=== PATIENT | female | born 1990 | race Two or more races ===

== ENCOUNTER → 2016-12-20 | Outpatient (CLI) | payer MEDICAID ==
[2016-12-20 12:01] LABS: Basophils # (auto) 0 uL; Basophils % (auto) 0.4 % (0.0-2.0); DEFINITIVE VIEW TRANSMISSION; Eosinophils # (auto) 0.1 uL; Eosinophils % (auto) 1.4 % (0.0-7.0); Hematocrit 33.6 % (36.0-46.0); Hemoglobin 10.5 g/dL (12.2-16.2); Lymphocytes # (auto) 1.5 uL; Lymphocytes % (auto) 15.9 % (10.0-50.0); Mean Corpuscular Hemoglobin 26.8 pg (28.0-32.0); Mean Corpuscular Hgb Conc. 31.4 g/dL (32.0-36.0); Mean Corpuscular Volume 85.2 fL (80.0-100.0); Mean Platelet Volume 8.7 fL (7.4-10.4); Monocytes # (auto) 0.3 uL; Monocytes % (auto) 3.6 % (0.0-12.0); Neutrophils # (auto) 7.5 uL; Neutrophils % (auto) 78.7 % (37.0-80.0); Platelet Count (auto) 297 10^3/uL (140-450); Red Cell Distribution Width 13.8 % (11.6-16.0); White Blood Cell 9.5 10^3/uL (4.4-10.8)
== END | disposition home or self-care (01) ==
LOC: LAB 10:21
PROVIDERS: ATTEND Specialist
DX: Z34.80 Encounter for supervision of other normal pregnancy, unspecified trimester (principal); Z11.3 Encounter for screening for infections with a predominantly sexual mode of transmission; N76.0 Acute vaginitis
CPT/HCPCS: 36415; 80074; 85025; 86703; 87081

== ENCOUNTER 2024-12-26 21:09 | Emergency (ER) | payer MEDICAID ==
[~2024-12-26] VITALS: Ht 165.1 cm; Wt 72.1 kg
--- NOTE | 2024-12-26 21:59 | ED.PDOC ---
GI ASSESSMENT HPI Comments 34 year old female came to ER due to abdominal pain. Patient recently found out last week that she was (, unsure of her LMP). She has been having epigastric abdominal pain for the past 2 days, associated with nausea and diarrhea, and palpitations. Denies any vaginal bleeding. Chief Complaint: Abdominal Pain Time Seen by MD: 21:58 Reviewed Notes: Nurses Notes Allergies: Coded Allergies: No Known Drug Allergy (Verified Allergy, Unknown, 12/26/24) Information Source: Patient Mode of Arrival: Ambulatory Timing: Hours Duration: Since onset Prehospital treatment: None Quality: Aching Vomitus: None Stool: Loose, Watery Severity: Moderate Recent: Other () Recent Hx of: Current Pain Location: Epigastric Modifying Factors: Nothing Associated sign and symptoms: Nausea, Diarrhea, Abdominal Pain Past Medical History PAST MEDICAL HISTORY: Denies Surgical History: Denies all surgeries BILLING CLERK History: Denies all BILLING CLERK Hx 4 Para 3 Constitutional: denies: chills, diaphoresis, fatigue, fever, malaise, sweats, weakness, others EENTM: denies: blurred vision, double vision, ear bleeding, ear discharge, ear drainage, ear pain, ear ringing, eye pain, eye redness, hearing loss, mouth pain, mouth swelling, nasal discharge, nose bleeding, nose congestion, nose pain, photophobia, tearing, throat pain, throat swelling, voice changes, others Respiratory: denies: cough, hemoptysis, orthopnea, SOB at rest, shortness of breath, SOB with excertion, stridor, wheezing, others Cardiovascular: denies: chest pain, dizzy spells, diaphoresis, Dyspnea on exertion, edema, irregular heart beat, left arm pain, lightheadedness, palpita tions, PND, syncope, others Gastrointestinal: reports: abdominal pain, diarrhea, nausea; denies: abdomen distended, blood streaked bowels, constipated, dysphagia, difficulty swallowing, hematemesis, melena, poor appetite, poor fluid intake, rectal bleeding, rectal pain, vomiting, others Genitourinary: denies: abnormal vagina bleeding, burning, dyspareunia, dysuria, flank pain, frequency, hematuria, incontinence, pain, , vagina discharge, urgency, others Neurological: reports: dizziness; denies: fainting, headache, left sided numbness, left sided weakness, numbness, paresthesia, pre-existing deficit, rig ht sided numbness, right sided weakness, seizure, speech problems, tingling, tremors, weakness, others Musculoskeletal: denies: back pain, gout, joint pain, joint swelling, muscle pain, muscle stiffness, neck pain, others Integumetry: denies: bruises, change in color, change in hair/nails, dryness, laceration, lesions, lumps, rash, wounds, others Allergic/Immunocompromised: denies: Difficulty Healing, Frequent Infections, Hives, Itching, others Hematologic/Lymphatic: denies: anemia, blood clots, easy bleeding, easy bruising, swollen glands, others Endocrine: denies: excessive hunger, excessive sweating, excessive thirst, excessive urination, flushing, intolerance to cold, intolerance to heat, unexplained weight gain, unexplained weight loss, others Psychiatric: denies: anxiety, bipolar disorder, depression, hopeless, panic disorder, schizophrenia, sleepless, suicidal, others Physical Exam General Appearance: No Apparent Distress, Normal HEENT: Normal ENT Inspection, Pharynx Normal, TMs Normal Neck: Full Range of Motion, Non-Tender, Normal, Normal Inspection Respiratory: Chest Non-Tender, Lungs Clear, No Accessory Muscle Use, No Respiratory Distress, Normal Breath Sounds Cardiovascular: No Edema, No JVD, No Murmur, No Gallop, Normal Peripheral Pulses, Regular Rate/Rhythm Breast Exam: Deferred Gastrointestinal: No Organomegaly, Non Tender, No Pulsatile Mass, Normal Bowel Sounds, Soft Genitalia: Deferred Pelvic: Deferred Rectal: Deferred Extremities: No calf tenderness, Normal capillary refill, Normal inspection, Normal range of motion, Non-tender, No pedal edema Musculoskeletal : Apperance: Normal Neurologic: Alert, tower equipment installer II-XII nml as Tested, No Motor Deficits, Normal Affect, Normal Mood, No Sensory Deficits Cerebellar Function: Normal Reflexes: Normal Skin: Dry, Normal Color, Warm Lymphatic: No Adenopathy Was a procedure done? Was a procedure done?: No GI differential Dx Differential Diagnosis: Cholecystitis, Constipation, Diverticular disease, Gastritis/PUD, Gastroenteritis, Pancreatitis, UTI, Urolithiasis, X-Ray, Labs, Meds, VS Vital Signs Date Time Temp Pulse Resp B/P (MAP) Pulse Ox O2 Delivery O2 Flow Rate FiO2 12/26/24 21:55 98.6 74 16 125/71 (89) 100 Lab Test 12/26/24 22:00 12/26/24 21:58 Range/Units Urine Color Light-yellow Yellow Urine Clarity Clear Clear Urine pH 5.5 5.0-9.0 Urine Specific [place] 1.016 1.001-1.035 Urine Protein Negative Negative Urine Ketones Negative Negative Urine Blood Negative Negative /uL Urine Nitrite Negative Negative Urine Bilirubin Negative Negative Urine Urobilinogen Normal Negative mg/dL Urine Leukocyte Esterase Negative Negative /uL Urine RBC 1 0 - 4 /hpf Urine Microscopic WBC 1 0-5 /HPF Urine Squamous Epithelial Cells Few <5 /hpf Urine Bacteria None seen None Seen /hpf Urine Glucose Normal Normal mg/dL White Blood Count 9.1 4.4-10.8 10^3/uL Red Blood Count 4.84 4.0-5.20 10^6/uL Hemoglobin 13.8 12.2-16.2 g/dL Hematocrit 41.8 36.0-46.0 % Mean Corpuscular Volume 86.4 80.0-100.0 fL Mean Corpuscular Hemoglobin 28.5 28.0-32.0 pg Mean Corpuscular Hemoglobin Concent 32.9 32.0-36.0 g/dL Red Cell Distribution Width 13.8 11.8-14.3 % Platelet Count 343 140-450 10^3/uL Mean Platelet Volume 8.6 6.9-10.8 fL Neutrophils (%) (Auto) 63.0 37.0-80.0 % Lymphocytes (%) (Auto) 27.0 10.0-50.0 % Monocytes (%) (Auto) 6.3 0.0-12.0 % Eosinophils (%) (Auto) 2.8 0.0-7.0 % Basophils (%) (Auto) 0.9 0.0-2.0 % Neutrophils # (Auto) 5.7 1.6-8.6 10 ^3/uL Lymphocytes # (Auto) 2.5 0.4-5.4 10 ^3/uL Monocytes # (Auto) 0.6 0-1.3 10 ^3/uL Eosinophils # (Auto) 0.3 0-0.8 10 ^3/uL Basophils # (Auto) 0.1 0-0.2 10 ^3/uL Nucleated Red Blood Cells 0.1 % Sodium Level 137 136-145 mmol/L Potassium Level 3.4 L 3.5-5.1 mmol/L Chloride Level 103 98-107 mmol/L Carbon Dioxide Level 25 20-31 mmol/L Anion Gap 9 5-15 Blood Urea Nitrogen 12 9-23 mg/dL Creatinine 0.94 0.550-1.02 mg/dL Glomerular Filtration Rate Calc 82 >90 mL/min BUN/Creatinine Ratio 12.8 10.0-20.0 Serum Glucose 85 74-106 mg/dL Calcium Level 10.6 H 8.7-10.4 mg/dL Beta HCG, Quantitative 6049.4 H 1.5-4.2 mIU/mL Time of 1ST Reevaluation: 21:52 Reevaluation 1ST: Unchanged Patient Education/Counseling: Diagnosis, Treatment Family Education/Counseling: No Family Present Departure 1 Departure Time of Disposition: 00:14 (Patient likely has a acid reflux from . Patient's beta hCG 6000 ultrasound shows what may be the beginning of a intrauterine you outpatient follow up with an OB within 2 weeks.) Impression: Primary Impression: Early stage of Additional Impression: Abdominal pain Qualified Codes: R10.84 - Generalized abdominal pain Disposition: 01 HOME / SELF CARE / HOMELESS Condition: Stable Additional Instructions: You likely have acid reflux and . You can take [id number] omeprazole. Your beta hCG level today was approximately 6000 Your ultrasound showed the beginning of the but no definite intrauterine at this time. It is important to follow up with your OBGYN within 2 weeks to repeat your labs and ultrasound. Discharged With: Self Critical Care Note Critical Care Time?: No Stability Stability form required: No Heart Score Heart Score: Heart Score Response (Comments) Value History N/A 0 EKG N/A 0 Age N/A 0 Risk Factors N/A 0 Troponin N/A 0 Total 0 I personally scribed for MATIAS VENTURA MD ([email or web address]) on 12/26/24 at 21:59. Electronically submitted by Gus Schaeffer ([email or web address]). MATIAS VENTURA MD Dec 26, 2024 21:59
[2024-12-26 22:29] LABS: Basophils # (auto) 0.1 10 ^3/uL (0-0.2); Basophils % (auto) 0.9 % (0.0-2.0); Eosinophils # (auto) 0.3 10 ^3/uL (0-0.8); Eosinophils % (auto) 2.8 % (0.0-7.0); Hematocrit 41.8 % (36.0-46.0); Hemoglobin 13.8 g/dL (12.2-16.2); Lymphocytes # (auto) 2.5 10 ^3/uL (0.4-5.4); Mean Corpuscular Hemoglobin 28.5 pg (28.0-32.0); Mean Corpuscular Hgb Conc. 32.9 g/dL (32.0-36.0); Mean Corpuscular Volume 86.4 fL (80.0-100.0); Monocytes # (auto) 0.6 10 ^3/uL (0-1.3); Monocytes % (auto) 6.3 % (0.0-12.0); Neutrophils # (auto) 5.7 10 ^3/uL (1.6-8.6); Nucleated Red Blood Cells % 0.1 %; Platelet Count (auto) 343 10^3/uL (140-450); Red Blood Cells 4.84 10^6/uL (4.0-5.20); Red Cell Distribution Width 13.8 % (11.8-14.3); White Blood Cell 9.1 10^3/uL (4.4-10.8)
[2024-12-26 22:33] LABS: Chloride 103 mmol/L (98-107); Sodium 137 mmol/L (136-145)
[2024-12-26 22:34] LABS: Anion Gap 9 (5-15); Carbon Dioxide 25 mmol/L (20-31)
[2024-12-26 22:35] LABS: Urine Bacteria None Seen /hpf (None Seen)
[2024-12-26 22:39] LABS: BUN/Creatinine Ratio 12.8 (10.0-20.0); Blood Urea Nitrogen 12 mg/dL (9-23); Glucose 85 mg/dL (74-106)
[2024-12-26 22:40] LABS: Calcium 10.6 mg/dL (8.7-10.4); Potassium 3.4 mmol/L (3.5-5.1)
[2024-12-26 22:42] LABS: Urine Blood Negative /uL (Negative); Urine Clarity Clear (Clear); Urine Color Light-Yellow (Yellow); Urine Protein, UAD Negative (Negative); Urine Specific Gravity 1.016 (1.001-1.035); Urine Squamous Epithelial Cell FEW /hpf (<5); Urine Urobilinogen Normal (Negative); Urine WBC 1 /HPF (0-5); Urine pH 5.5 (5.0-9.0)
--- NOTE | 2024-12-27 00:13 | DVH ---
OB ULTRASOUND <14 WEEKS: HISTORY: abdominal pain and vaginal bleeding TECHNIQUE: Multiple real-time grayscale sonographic images of the pelvis with duplex Doppler color f low, spectral and M-mode analysis. TRANSDUCERS: Transabdominal Findings/ IMPRESSION: Uterus measures 8.1 x 6.2 x 5.1 cm. Endometrium measures 1.6 cm. No free fluid in the pelvic cul-de- sac . Possible cystic lesion within the endometrium which may represent an early gestational sac. No pole or yolk sac. Correlation with beta HCG recommended. Consider follow-up ultrasound in 2 wee ks. Right ovary measures 2.2 x 1.8 x 1.7 cm. Left ovary measures 2.9 x 1.2 x 2.0 cm color doppler flow i s visualized bilaterally.
[2024-12-27 01:35] VITALS: BP 122/66; PULSE 78; RESP 18; TEMP 98.2; O2SAT 100
== END 2024-12-27 01:37 | disposition home or self-care (01) ==
LOC: ER 21:09
DX: O26.891 Other specified pregnancy related conditions, first trimester (principal); R10.2 Pelvic and perineal pain; R10.13 Epigastric pain; R19.7 Diarrhea, unspecified; R11.0 Nausea; Z3A.00 Weeks of gestation of pregnancy not specified
CPT/HCPCS: 36415; 76801; 80048; 81001; 84702; 85025

== ENCOUNTER 2025-06-22 10:23 | Observation (INO) | payer MEDICAID ==
[2025-06-22] MEDS ORDERED: PREN-96 PO (11:58)
--- NOTE | 2025-06-22 14:18 | DVHDS2 ---
Physician Discharge Progress N Final Diagnosis: Encounter for surveillance Operations or Procedures: Operations or Procedures NST Condition on Discharge: Stable Disposition: Home Discharge Instructions: Diet: Regular Activity: No Restrictions, As Tolerated Follow Up/Referral: As scheduled Medications: NA Follow Up Care: Discharge Statement: "Patient was advised to return to the ER or call 911 if any headaches, dizziness, shortness of breath, chest pain, abdominal pain, bleeding, fevers, or worsening of medical condition. Patient was counseled about treatment plan, medications, possible side effects, patientverbalized understanding. All questions were answered to the best of my ability. This discharge took greater then 30 minutes in planning, reviewing documentation, counseling the patient, and discussing with other team members." Visit Coding OBGYN Date of Service: Jun 22, 2025 Billing Provider: HARPREET MOCK DO POT ROOM SUPERVISOR Common Visit Codes: 17104-JJN/OBS SAME DATE (MOD) POT ROOM SUPERVISOR Procedure Codes: 16995-38- NON-STRESS TEST HARPREET MOCK DO Jun 22, 2025 14:18
== END 2025-06-22 12:13 | disposition home or self-care (01) ==
LOC: LDRP 10:23
PROVIDERS: ATTEND Obstetrics & Gynecology
DX: Z36.89 Encounter for other specified antenatal screening (principal); Z3A.30 30 weeks gestation of pregnancy; Z98.890 Other specified postprocedural states; Z79.899 Other long term (current) drug therapy
CPT/HCPCS: 59025; 81002; 94760; G0378

== ENCOUNTER 2025-06-25 08:42 | Observation (INO) | payer MEDICAID ==
[~2025-06-25 08:42] MED LIST: PREN-96 PO
--- NOTE | 2025-06-25 14:33 | DVHDS2 ---
Physician Discharge Progress N Final Diagnosis: anti m ab 30wks Operations or Procedures: Operations or Procedures nst reactive reviwed,sono Condition on Discharge: Good Disposition: Home Discharge Instructions: Diet: Regular Activity: No Restrictions, As Tolerated Medications: na Follow Up Care: Specialist: 1w Discharge Statement: "Patient was advised to return to the ER or call 911 if any headaches, dizziness, shortness of breath, chest pain, abdominal pain, bleeding, fevers, or worsening of medical condition. Patient was counseled about treatment plan, medications, possible side effects, patientverbalized understanding. All questions were answered to the best of my ability. This discharge took greater then 30 minutes in planning, reviewing docu mentation, counseling the patient, and discussing with other team members." Visit Coding OBGYN Date of Service: Jun 25, 2025 Billing Provider: BLANKA MORALES DO FACTORY MANAGER Common Visit Codes: 99157-[id number] OBS CARE (HIGH) FACTORY MANAGER Procedure Codes: 57162-54- NON-STRESS TEST BLANKA MORALES DO Jun 25, 2025 14:33
== END 2025-06-25 14:30 | disposition home or self-care (01) ==
LOC: UNDOADMOB 13:45 → LDRP 13:45
PROVIDERS: ADMIT Obstetrics & Gynecology; ATTEND Obstetrics & Gynecology
DX: O36.1930 Maternal care for other isoimmunization, third trimester, not applicable or unspecified (principal); Z3A.30 30 weeks gestation of pregnancy; Z79.899 Other long term (current) drug therapy; Z98.890 Other specified postprocedural states
CPT/HCPCS: 59025; 81002; 94760; G0378

== ENCOUNTER 2025-07-02 16:10 | Observation (INO) | payer MEDICAID | END 2025-07-02 16:52 | disposition home or self-care (01) | LOC: UNDOADMOB 16:10 → LDRP 16:10 → UNDODISOB 16:52 | PROVIDERS: ADMIT Obstetrics & Gynecology; ATTEND Obstetrics & Gynecology | DX: Z36.89 Encounter for other specified antenatal screening (principal); Z3A.31 31 weeks gestation of pregnancy; Z98.890 Other specified postprocedural states; Z79.899 Other long term (current) drug therapy | CPT/HCPCS: 59025; 81002; G0378 ==

== ENCOUNTER 2025-07-08 06:34 | Observation (INO) | payer MEDICAID ==
--- NOTE | 2025-07-09 17:09 | DVH ---
BIOPHYSICAL PROFILE HISTORY: Anti-M antibody Comparison Study: US OB ULTRASOUND COMP LESS 14WKS on DOS: 12/26/24 TECHNIQUE: Multiple real-time grayscale sonographic images through the gravid uterus of the fetus wi th duplex Doppler color flow and M-mode spectral analysis FINDINGS: BIOPHYSICAL PROFILE: breathing score: 2 movement score: 2 tone score: 2 Quantitative ALE score: 2 (ALE: 13.7 Cm.) Total score: 8 The cervix is not visualized Single live fetus in cephalic presentation. heart rate 161 beats per minute. Possible nuchal cord. IMPRESSION: Biophysical profile score: 8/8 Possible nuchal cord.
--- NOTE | 2025-07-09 17:44 | DVHDS2 ---
Physician Discharge Progress N Final Diagnosis: testing for Anti-M antibody Operations or Procedures: Operations or Procedures 35yo IUP@32.4wks VSS NST reactive FKC/PTL precautions reviewed Dr. Kendrick consulted, agrees with POC. Other Interventions Other Interventions [address] [address] Ph: [phone] DIAGNOSTIC IMAGING Diagnostic Imaging Report : [id number] Signed PATIENT: YULISA FAULKNERCCT: [id number] UNIT: [id number] : 1990 LOC: [facility] ROOM / BED: TRIAGE2 / A AGE / SEX: 35 / F ADM STATUS: ADM IN SERVICE 1609 ORDERING PHYSICIAN: NORM CARLOS CNM PROCEDURE(s): BPP - BIOPHYSICAL PROFILE REASON: Anti-M antibody ORDER NUMBER(s): [id number], ACCESSION NUMBER(s): [id number] BIOPHYSICAL PROFILE HISTORY: Anti-M antibody Comparison Study: US OB ULTRASOUND COMP LESS 14WKS on DOS: 12/26/24 TECHNIQUE: Multiple real-time grayscale sonographic images through the gravid uterus of the fetus with duplex Doppler color flow and M-mode spectral analysis FINDINGS: BIOPHYSICAL PROFILE: breathing score: 2 movement score: 2 tone score: 2 Quantitative ALE score: 2 (ALE: 13.7 Cm.) Total score: 8 The cervix is not visualized Single live fetus in cephalic presentation. heart rate 161 beats per minute. Possible nuchal cord. IMPRESSION: Biophysical profile score: 8/8 Possible nuchal cord. ATED BY: BEAU CHRISTIAN MD DICTATED DATE/TIME: 07/09/251705 SIGNED BY: BEAU CHRISTIAN MD SIGNED DATE/TIME: 07/09/251705 CC: Condition on Discharge: Stable Disposition: Home Discharge Instructions: Diet: Regular Activity: Light activity Medications: see med list Follow Up Care: Specialist: f/u in 1 wk Discharge Statement: "Patient was advised to return to the ER or call 911 if any headaches, dizziness, shortness of breath, chest pain, abdominal pain, bleeding, fevers, or worsening of medical condition. Patient was counseled about treatment plan, medications, possible side effects, patientverbalized understanding. All questions were answered to the best of my ability. This discharge took greater then 30 minutes in planning, reviewing documentation, counseling the patient, and discussing with other team members." Visit Coding OBGYN Date of Service: Jul 09, 2025 Billing Provider: NORM CARLOS CNM CARTRIDGE BELT PUNCHER Common Visit Codes: 85634-[id number] OBS CARE (HIGH) CARTRIDGE BELT PUNCHER Procedure Codes: 37766-42- NON-STRESS TEST NORM CARLOS CNM Jul 09, 2025 17:44
== END 2025-07-09 17:30 | disposition home or self-care (01) ==
LOC: UNDOADMOB 07-09 16:06 → LDRP 07-09 16:06 → UNDODISOB 07-09 17:30
PROVIDERS: ADMIT Obstetrics & Gynecology; ATTEND Obstetrics & Gynecology
DX: O36.1930 Maternal care for other isoimmunization, third trimester, not applicable or unspecified (principal); Z3A.32 32 weeks gestation of pregnancy; Z98.890 Other specified postprocedural states
CPT/HCPCS: 59025; 76819; 81002; 94760; G0378

== ENCOUNTER 2025-07-16 06:41 | Observation (INO) | payer MEDICAID ==
--- NOTE | 2025-07-16 16:44 | DVH ---
OB ULTRASOUND, LIMITED CLINICAL INDICATION: anti m antibody TECHNIQUE: Multiple grayscale ultrasound and M-mode images were obtained of the pelvis for evaluation of intrauterine . COMPARISON: US BIOPHYSICAL PROFILE on DOS: 07/09/25, US OB ULTRASOUND COMP LESS 14WKS on DOS: 12/26/24 FINDINGS: A single living fetus is seen in cephalic presentation. Physical profile: 06/13 movements: 2 breathin tone: 2 Amniotic fluid volume: 2 Placenta: Anterior. Amniotic fluid: Visibly normal. ALE 14.1 cm heart rate: 124 beats/min. A complete anatomic survey was not performed on this exam. IMPRESSION: 1. Biophysical profile: 06/13
--- NOTE | 2025-07-16 16:58 | DVHDS2 ---
Physician Discharge Progress N Final Diagnosis: ANTI M AB 33 WKS Operations or Procedures: Operations or Procedures NST REACTIVE REVIWED,SONO Condition on Discharge: Good Disposition: Home Discharge Instructions: Diet: Regular Activity: Light activity Medications: NA Follow Up Care: Specialist: 1W Discharge Statement: "Patient was advised to return to the ER or call 911 if any headaches, dizziness, shortness of breath, chest pain, abdominal pain, bleeding, fevers, or worsening of medical condition. Patient was counseled about treatment plan, medications, possible side effects, patientverbalized understanding. All questions were answered to the best of my ability. This discharge took greater then 30 minutes in planning, reviewing documentation, counseling the patient, and discussing with other team members." Visit Coding OBGYN Date of Service: Jul 16, 2025 Billing Provider: BLANKA MORALES DO RADIO MECHANIC APPRENTICE Common Visit Codes: [id number] OBS CARE (HIGH) RADIO MECHANIC APPRENTICE Procedure Codes: 42225-70- NON-STRESS TEST BLANKA MORALES DO Jul 16, 2025 16:58
== END 2025-07-16 17:02 | disposition home or self-care (01) ==
LOC: UNDOADMOB 15:53 → LDRP 15:53
PROVIDERS: ADMIT Obstetrics & Gynecology; ATTEND Obstetrics & Gynecology
DX: Z36.84 Encounter for antenatal screening for fetal lung maturity (principal); Z3A.33 33 weeks gestation of pregnancy
CPT/HCPCS: 59025; 76819; 81002; G0378

== ENCOUNTER 2025-07-23 12:14 | Observation (INO) | payer MEDICAID ==
--- NOTE | 2025-07-23 13:24 | DVH ---
BIOPHYSICAL PROFILE HISTORY: Anti-M Antibodies Comparison Study: US BIOPHYSICAL PROFILE on DOS: 07/16/25, US BIOPHYSICAL PROFILE on DOS: 07/09/25, US O B ULTRASOUND COMP LESS 14WKS on DOS: 12/26/24 TECHNIQUE: Multiple real-time grayscale sonographic images through the gravid uterus of the fetus wi th duplex Doppler color flow and M-mode spectral analysis FINDINGS: BIOPHYSICAL PROFILE: breathing score: 2 movement score: 2 tone score: 2 Quantitative ALE score: 2 (ALE: 12.9 Cm.) Total score: 8 The cervix is closed and measures 3.5 cm. Single live fetus in cephalic presentation. heart rate 126 beats per minute. Anterior placenta without previa or abruption IMPRESSION: Biophysical profile score: 8
--- NOTE | 2025-07-25 16:33 | DVHDS2 ---
Physician Discharge Progress N Final Diagnosis: anti m 34 wks Operations or Procedures: Operations or Procedures nst reactive reviwed,sono Condition on Discharge: Good Disposition: Home Discharge Instructions: Diet: Regular Activity: No Restrictions, As Tolerated Follow Up/Referral: Follow up with Dr. Kendrick at next appointment as scheduled, please return to [facility] for any concerns/complaints Medications: na Follow Up Care: Specialist: 1w Discharge Statement: "Patient was advised to return to the ER or call 911 if any headaches, dizziness, shortness of breath, chest pain, abdominal pain, bleeding, fevers, or worsening of medical condition. Patient was counseled about treatment plan, medications, possible side effects, patientverbalized understanding. All questions were answered to the best of my ability. This discharge took greater then 30 minutes in planning, reviewing documentation, counseling the patient, and discussing with other team members." Visit Coding OBGYN Date of Service: Jul 23, 2025 Billing Provider: BLANKA KENDRICK DO UNIVERSAL BANKER Common Visit Codes: 92969-[id number] OBS CARE (HIGH) UNIVERSAL BANKER Procedure Codes: 26410-59- NON-STRESS TEST BLANKA KENDRICK DO Jul 25, 2025 16:33
== END 2025-07-23 14:43 | disposition home or self-care (01) ==
LOC: LDRP 12:14
PROVIDERS: ADMIT Obstetrics & Gynecology; ATTEND Obstetrics & Gynecology
DX: O36.1930 Maternal care for other isoimmunization, third trimester, not applicable or unspecified (principal); Z3A.34 34 weeks gestation of pregnancy; Z98.890 Other specified postprocedural states
CPT/HCPCS: 59025; 76819; 81002; 96360; G0378

== ENCOUNTER 2025-07-28 07:27 | Observation (INO) | payer MEDICAID ==
--- NOTE | 2025-07-28 12:58 | DVH ---
BIOPHYSICAL PROFILE HISTORY: Anti- M- Antibody TECHNIQUE: Multiple transabdominal real-time grayscale sonographic images through the gravid uterus of the fetus with duplex Doppler color flow and M-mode spectral analysis FINDINGS: BIOPHYSICAL PROFILE: breathing score: 2 movement score: 2 tone score: 2 Quantitative ALE score: 2 (ALE: 13.6 Cm.) Total score: 8 The cervix not well visualized. Single live fetus in cephalic presentation. heart rate 147 beats per minute. Anterior placenta without previa or abruption IMPRESSION: Biophysical profile score: 8
--- NOTE | 2025-07-28 17:02 | DVHDS2 ---
Discharge Summary Date of Admission Jul 28, 2025 at 11:50 Date of Discharge: Jul 28, 2025 Admitting Diagnosis 35+ weeks anti M antibody Wounds: None Brief Hx & Hospital Course: Patient here for monitoring 35+ weeks anti M antibody NST BPP performed reassuring Consults/Reason for consult None Operations or Procedures None Condition at Discharge: Good Final Diagnosis/Problems List 35+ weeks anti M antibody reassuring heart tones Discharge Disposition: Home Discharge Instruct/Medications Diet: Regular Activity: Light activity (Kick counts labor precautions) Follow Up/Referral: As scheduled close routine monitoring Medications: Resume home meds Scheduled Vit W/ Ferrous Fumara ( One Daily), 1 TAB PO DAILY, (Reported) Discharge Statement: "Patient was advised to return to the ER or call 911 if any headaches, dizziness, shortness of breath, chest pain, abdominal pain, bleeding, fevers, or worsening of medical condition. Patient was counseled about treatment plan, medications, possible side effects, patientverbalized understanding. All questions were answered to the best of my ability. This discharge took greater then 30 minutes in planning, reviewing documentation, counseling the patient, and discussing with other team members." DME: Diagnosis: Follow up perinatology and continuous routine monitoring ASSESSMENT ASSESSMENT Assessment Visit Coding OBGYN Date of Service: Jul 28, 2025 Billing Provider: BIENVENIDO OHARA DO YARD INSPECTOR Common Visit Codes: 80867-KER/OBS SAME DATE (LOW), 85289-IYE/OBS SAME DATE (MOD), 61344-CEJ/OBS SAME DATE (HIGH) YARD INSPECTOR Procedure Codes: 76145-56- NON-STRESS TEST BIENVENIDO OHARA DO Jul 28, 2025 17:02
== END 2025-07-28 13:00 | disposition home or self-care (01) ==
LOC: UNDOADMOB 11:45 → LDRP 11:45 → UNDODISOB 13:00
PROVIDERS: ADMIT Obstetrics & Gynecology; ATTEND Obstetrics & Gynecology
DX: O36.1930 Maternal care for other isoimmunization, third trimester, not applicable or unspecified (principal); Z3A.35 35 weeks gestation of pregnancy; Z98.890 Other specified postprocedural states; Z79.899 Other long term (current) drug therapy
CPT/HCPCS: 59025; 76819; 81002; 94760; G0378

== ENCOUNTER 2025-08-08 01:30 | Observation (INO) | payer MEDICAID ==
--- NOTE | 2025-08-08 12:45 | DVH ---
BIOPHYSICAL PROFILE HISTORY: Anti M Antibody TECHNIQUE: Multiple transabdominal real-time grayscale sonographic images through the gravid uterus of the fetus with duplex Doppler color flow and M-mode spectral analysis FINDINGS: BIOPHYSICAL PROFILE: breathing score: 2 movement score: 2 tone score: 2 Quantitative ALE score: 2 (ALE: 12.8 Cm.) Total score: 8/8 The cervix obscured by head Single live fetus in cephalic presentation. heart rate 155 beats per minute. Anterior Grade 2 placenta without previa or abruption Single live fetus at 36 weeks 6 days Biophysical profile score 8/8 corresponding to an EDWIGE of 08/30/2025 IMPRESSION: 1. Biophysical profile score: 8/8 HS:Y
--- NOTE | 2025-08-08 13:37 | DVHDS2 ---
Physician Discharge Progress N Final Diagnosis: anti m ab 36wks Operations or Procedures: Operations or Procedures nst,sono nst reactive reviwed,sono Condition on Discharge: Good Disposition: Home Discharge Instructions: Diet: Regular Activity: No Restrictions, As Tolerated Medications: na Follow Up Care: Specialist: 1w Discharge Statement: "Patient was advised to return to the ER or call 911 if any headaches, dizziness, shortness of breath, chest pain, abdominal pain, bleeding, fevers, or worsening of medical condition. Patient was counseled about treatment plan, medications, possible side effects, patientverbalized understanding. All questions were answered to the best of my ability. This discharge took greater then 30 minutes in planning, reviewing documentation, counseling the patient, and discussing with other team members." Visit Coding OBGYN Date of Service: Aug 08, 2025 Billing Provider: BLANKA MORALES DO HEALTH ASSISTANT Common Visit Codes: [id number] OBS CARE (HIGH) HEALTH ASSISTANT Procedure Codes: 94468-71- NON-STRESS TEST BLANKA MORALES DO Aug 08, 2025 13:37
[2025-08-08 13:41] LABS: Hematocrit 33.3 % (36.0-46.0); Hemoglobin 10.9 g/dL (12.2-16.2); Mean Corpuscular Hemoglobin 27.3 pg (28.0-32.0); Mean Corpuscular Volume 83.3 fL (80.0-100.0); Nucleated Red Blood Cells % 0.0 %
== END 2025-08-08 13:40 | disposition home or self-care (01) ==
LOC: UNDOADMOB 11:22 → LDRP 11:22
PROVIDERS: ADMIT Obstetrics & Gynecology; ATTEND Obstetrics & Gynecology
DX: O36.1930 Maternal care for other isoimmunization, third trimester, not applicable or unspecified (principal); Z3A.36 36 weeks gestation of pregnancy; Z98.890 Other specified postprocedural states
CPT/HCPCS: 36415; 59025; 76819; 81002; 85025; 86780; 87081; 94760; G0378

== ENCOUNTER 2025-08-15 07:34 | Observation (INO) | payer MEDICAID ==
--- NOTE | 2025-08-15 16:39 | DVH ---
OB ULTRASOUND, LIMITED CLINICAL INDICATION: anti m antibody TECHNIQUE: Multiple grayscale ultrasound and M-mode images were obtained of the pelvis for evaluation of intrauterine . COMPARISON: US BIOPHYSICAL PROFILE on DOS: 08/08/25, US BIOPHYSICAL PROFILE on DOS: 07/28/25, US BIOPHY SICAL PROFILE on DOS: 07/23/25 FINDINGS: A single living fetus is seen in cephalic presentation. Biophysical profile: 06/13 breathin movements: 2 tone: 2 Amniotic fluid: 2 Placenta: Anterior. Amniotic fluid: Visibly normal. ALE 13.1 cm heart rate: 145 beats/min. A complete anatomic survey was not performed on this exam. IMPRESSION: 1. Biophysical profile: 06/13
[2025-08-15] MEDS ORDERED: IOHEXOL 300 MG/ML 100ML BOTTLE IJ ONE (18:16)
--- NOTE | 2025-08-15 21:06 | DVHDS2 ---
Physician Discharge Progress N Final Diagnosis: Anti M Secondary Diagnosis: Encounter for NON stress test Operations or Procedures: Operations or Procedures NST/BPP ALE Commentary: Commentary PATIENT: ADDISON FAULKNERT: [id number] UNIT: [id number] : 1990 LOC: [facility] ROOM / BED: TRIAGE1 / A AGE / SEX: 35 / F ADM STATUS: ADM IN SERVICE 1559 ORDERING PHYSICIAN: HARPREET MOCK DO PROCEDURE(s): BPP - BIOPHYSICAL PROFILE REASON: anti m antibody ORDER NUMBER(s): [id number], ACCESSION NUMBER(s): [id number] OB ULTRASOUND, LIMITED CLINICAL INDICATION: anti m antibody TECHNIQUE: Multiple grayscale ultrasound and M-mode images were obtained of the pelvis for evaluation of intrauterine . COMPARISON: US BIOPHYSICAL PROFILE on DOS: 08/08/25, US BIOPHYSICAL PROFILE on DOS: 07/28/25, US BIOPHYSICAL PROFILE on DOS: 07/23/25 FINDINGS: A single living fetus is seen in cephalic presentation. Biophysical profile: 06/13 breathin movements: 2 tone: 2 Amniotic fluid: 2 Placenta: Anterior. Amniotic fluid: Visibly normal. ALE 13.1 cm heart rate: 145 beats/min. A complete anatomic survey was not performed on this exam. IMPRESSION: 1. Biophysical profile: 06/13 ATED BY: MITCHELL VALENTINE MD DICTATED DATE/TIME: 08/15/25 0517 Condition on Discharge: Stable Disposition: Home Discharge Instructions: Diet: Regular Activity: No Restrictions, As Tolerated Medications: NA Follow Up Care: Discharge Statement: "Patient was advised to return to the ER or call 911 if any headaches, dizziness, shortness of breath, chest pain, abdominal pain, bleeding, fevers, or worsening of medical condition. Patient was counseled about treatment plan, medications, possible side effects, patientverbalized understanding. All questions were answered to the best of my ability. This discharge took greater then 30 minutes in planning, reviewing docume ntation, counseling the patient, and discussing with other team members." Visit Coding OBGYN Date of Service: Aug 15, 2025 Billing Provider: HARPREET MOCK DO GAS OPERATOR Common Visit Codes: 09727-MNY/OBS SAME DATE (MOD) GAS OPERATOR Procedure Codes: 63778-46- NON-STRESS TEST HARPREET MOCK DO Aug 15, 2025 21:06
== END 2025-08-15 17:01 | disposition home or self-care (01) ==
LOC: UNDOADMOB 15:55 → LDRP 15:55
PROVIDERS: ADMIT Obstetrics & Gynecology; ATTEND Obstetrics & Gynecology
DX: O36.1930 Maternal care for other isoimmunization, third trimester, not applicable or unspecified (principal); Z3A.37 37 weeks gestation of pregnancy; Z98.890 Other specified postprocedural states; Z79.899 Other long term (current) drug therapy
CPT/HCPCS: 59025; 76819; 81002; 94760; G0378; Q9967

== ENCOUNTER 2025-08-19 21:26 | Observation (INO) | payer MEDICAID ==
[~2025-08-19] VITALS: Ht 165.1 cm; Wt 74.8 kg
[2025-08-19 22:09] LABS: Hematocrit 32.6 % (36.0-46.0); Hemoglobin 10.9 g/dL (12.2-16.2); Mean Corpuscular Hemoglobin 27.6 pg (28.0-32.0); Mean Corpuscular Volume 82.2 fL (80.0-100.0); Nucleated Red Blood Cells % 0.0 %
[2025-08-19 22:12] LABS: Urine Amorphous Crystal FEW /hpf (None Seen); Urine Protein, UAD Negative (Negative)
[2025-08-19 22:20] LABS: INR 0.89 (0.9-1.15); Partial Thromboplastin Time 26.5 SEC (24.5-34.5); Protein, Urine < 6.0 mg/dL (1-14); Prothrombin Time 9.5 sec (9.3-11.8)
[2025-08-19 22:22] LABS: Alanine Aminotransferase 26 U/L (7-40); Albumin 3.9 g/dL (3.2-4.8); Anion Gap 9 (5-15); BUN/Creatinine Ratio 13.9 (10.0-20.0); Blood Urea Nitrogen 10 mg/dL (9-23); Carbon Dioxide 22 mmol/L (20-31); Chloride 106 mmol/L (98-107); Glucose 82 mg/dL (74-106); Potassium 3.9 mmol/L (3.5-5.1); Sodium 137 mmol/L (136-145); Total Protein 7.2 g/dL (5.7-8.2); Uric Acid 4.2 mg/dL (3.1-7.8)
[2025-08-19 22:23] LABS: Bilirubin, Total 0.5 mg/dL (0.2-1.0)
[2025-08-19 22:41] LABS: Alkaline Phosphatase 170 U/L (46-116); Calcium 8.7 mg/dL (8.7-10.4)
--- NOTE | 2025-08-19 22:50 | DVHDS2 ---
Physician Discharge Progress N Final Diagnosis: Anti-M antibody well being established ruled out preeclampsia Operations or Procedures: Operations or Procedures S: 35yo IUP@38.3wks presents to OB triage with c/o vaginal spotting (brought in used toilet paper with trace blood on it), uterine cramps, CARTER, and RUQ pain. Denies LOF/vision changes. +FM. PNC with Dr. Kendrick, complicated by anti-M antibody O: VSS NST reactive TOCO: irregular UCs SVE by RN: 12/31/-2, intact Tylenol 1000mg PO ordered for CARTER urine P/C ratio is incalculable Laboratory Tests Test 08/19/25 21:50 Range/Units White Blood Count 9.9 4.4-10.8 10^3/uL Red Blood Count 3.96 L 4.0-5.20 10^6/uL Hemoglobin 10.9 L 12.2-16.2 g/dL Hematocrit 32.6 L 36.0-46.0 % Mean Corpuscular Volume 82.2 80.0-100.0 fL Mean Corpuscular Hemoglobin 27.6 L 28.0-32.0 pg Mean Corpuscular Hemoglobin Concent 33.6 32.0-36.0 g/dL Red Cell Distribution Width 15.6 H 11.8-14.3 % Platelet Count 256 140-450 10^3/uL Mean Platelet Volume 8.6 6.9-10.8 fL Neutrophils (%) (Auto) 71.2 37.0-80.0 % Lymphocytes (%) (Auto) 20.3 10.0-50.0 % Monocytes (%) (Auto) 6.2 0.0-12.0 % Eosinophils (%) (Auto) 1.8 0.0-7.0 % Basophils (%) (Auto) 0.5 0.0-2.0 % Neutrophils # (Auto) 7.0 1.6-8.6 10 ^3/uL Lymphocytes # (Auto) 2.0 0.4-5.4 10 ^3/uL Monocytes # (Auto) 0.6 0-1.3 10 ^3/uL Eosinophils # (Auto) 0.2 0-0.8 10 ^3/uL Basophils # (Auto) 0.1 0-0.2 10 ^3/uL Nucleated Red Blood Cells 0.0 % Prothrombin Time 9.5 9.3-11.8 sec Prothrombin Time INR 0.89 L 0.9-1.15 Activated Partial Thromboplast Time 26.5 24.5-34.5 SEC D-Dimer, Quantitative 2.10 H 0.0-0.49 mg/L FEU Urine Color Colorless Yellow Urine Clarity Clear Clear Urine pH 5.5 5.0-9.0 Urine Specific Lawrence 1.005 1.001-1.035 Urine Protein Negative Negative Urine Ketones Negative Negative Urine Blood Negative Negative /uL Urine Nitrite Negative Negative Urine Bilirubin Negative Negative Urine Urobilinogen Normal Negative mg/dL Urine Leukocyte Esterase 2+ Negative /uL Urine RBC 2 0 - 4 /hpf Urine Microscopic WBC 9 H 0-5 /HPF Urine Squamous Epithelial Cells Few <5 /hpf Urine Amorphous Crystals Few None Seen /hpf Urine Bacteria Few H None Seen /hpf Urine Creatinine 43.11 30.0-125.0 mg/dL -U-r-i-n-e- -G-y-r-t-e-i-n-/-H-z-j-g-a-g-n-i-n-e- -R-a-t-i-o- -0-.-1-4- Urine Glucose Normal Normal mg/dL Urine Total Protein < 6.0 1-14 mg/dL Sodium Level 137 136-145 mmol/L Potassium Level 3.9 3.5-5.1 mmol/L Chloride Level 106 98-107 mmol/L Carbon Dioxide Level 22 20-31 mmol/L Anion Gap 9 5-15 Blood Urea Nitrogen 10 9-23 mg/dL Creatinine 0.72 0.550-1.02 mg/dL Glomerular Filtration Rate Calc 112 >90 mL/min BUN/Creatinine Ratio 13.9 10.0-20.0 Serum Glucose 82 74-106 mg/dL Uric Acid 4.2 3.1-7.8 mg/dL Calcium Level 8.7 8.7-10.4 mg/dL Total Bilirubin 0.5 0.2-1.0 mg/dL Aspartate Amino Transferase (AST) 24 13-40 U/L Alanine Aminotransferase (ALT) 26 7-40 U/L Alkaline Phosphatase 170 H 46-116 U/L Total Protein 7.2 5.7-8.2 g/dL Albumin 3.9 3.2-4.8 g/dL A: 35yo IUP@38.3wks Anti-M antibody well being established ruled out preeclampsia P: D/C home FKC/PreE/labor precautions reviewed f/u in 3 days, will do 24 hour urine collection then Dr. Kendrick consulted, agrees with POC. Other Interventions Other Interventions [place] [address] Ph: [phone] DIAGNOSTIC IMAGING Diagnostic Imaging Report : [id number] Signed PATIENT: YULISA FAULKNERCCT: [id number] UNIT: [id number] : 1990 LOC: [facility] ROOM / BED: TRIAGE1 / A AGE / SEX: 35 / F ADM STATUS: ADM IN SERVICE 36 ORDERING PHYSICIAN: NORM CARLOS CNM PROCEDURE(s): BPP - BIOPHYSICAL PROFILE REASON: Vaginal bleeding and Anti-M antibody ORDER NUMBER(s): [id number], ACCESSION NUMBER(s): [id number] BIOPHYSICAL PROFILE HISTORY: Vaginal bleeding and Anti-M antibody Comparison Study: US BIOPHYSICAL PROFILE on DOS: 08/15/25, US BIOPHYSICAL PROFILE on DOS: 08/08/25, US BIOPHYSICAL PROFILE on DOS: 07/28/25, US BIOPHYSICAL PROFILE on DOS: 07/23/25, US BIOPHYSICAL PROFILE on DOS: 07/16/25 TECHNIQUE: Multiple real-time grayscale sonographic images through the gravid uterus of the fetus with duplex Doppler color flow and M-mode spectral analysis FINDINGS: BIOPHYSICAL PROFILE: breathing score: 2 movement score: 2 tone score: 2 Quantitative ALE score: 2 (ALE: 12.5 Cm.) Total score: 8 The cervix close Single live fetus in vertexpresentation. heart rate 151 beats per minute. Anterior placenta without previa or abruption IMPRESSION: Biophysical profile score: 8/ ATED BY: KYREE ARRIOLA MD DICTATED DATE/TIME: 08/19/252310 SIGNED BY: KYREE ARRIOLA MD SIGNED DATE/TIME: 08/19/252310 CC: Condition on Discharge: Stable Disposition: Home Discharge Instructions: Diet: Regular Activity: No Restrictions, As Tolerated Medications: see med list Follow Up Care: Specialist: f/u in 3 days Discharge Statement: "Patient was advised to return to the ER or call 911 if any headaches, dizziness, shortness of breath, chest pain, abdominal pain, bleeding, fevers, or worsening of medical condition. Patient was counseled about treatment plan, medications, possible side effects, patientverbalized understanding. All questions were answered to the best of my ability. This discharge took greater then 30 minutes in planning, reviewing documentation, counseling the patient, and discussing with other team members." Visit Coding OBGYN Date of Service: Aug 20, 2025 Billing Provider: NORM CARLOS CNM ELECTRIC TRACK SWITCH MAINTAINER Common Visit Codes: 35802-TNWQCGS OBS CARE (HIGH) ELECTRIC TRACK SWITCH MAINTAINER Procedure Codes: 20683-39- NON-STRESS TEST NORM CARLOS CNM Aug 19, 2025 22:50
--- NOTE | 2025-08-19 23:13 | DVH ---
BIOPHYSICAL PROFILE HISTORY: Vaginal bleeding and Anti-M antibody Comparison Study: US BIOPHYSICAL PROFILE on DOS: 08/15/25, US BIOPHYSICAL PROFILE on DOS: 08/08/25, US BIOPHYSICAL PROFILE on DOS: 07/28/25, US BIOPHYSICAL PROFILE on DOS: 07/23/25, US BIOPHYSICAL PROFILE on DOS: 07/16/25 TECHNIQUE: Multiple real-time grayscale sonographic images through the gravid uterus of the fetus wi th duplex Doppler color flow and M-mode spectral analysis FINDINGS: BIOPHYSICAL PROFILE: breathing score: 2 movement score: 2 tone score: 2 Quantitative ALE score: 2 (ALE: 12.5 Cm.) Total score: 8 The cervix close Single live fetus in vertexpresentation. heart rate 151 beats per minute. Anterior placenta without previa or abruption IMPRESSION: Biophysical profile score: 8/
== END 2025-08-19 23:57 | disposition home or self-care (01) ==
LOC: LDRP 21:26
PROVIDERS: ADMIT Obstetrics & Gynecology; ATTEND Obstetrics & Gynecology
DX: O36.1930 Maternal care for other isoimmunization, third trimester, not applicable or unspecified (principal); O26.853 Spotting complicating pregnancy, third trimester; Z3A.38 38 weeks gestation of pregnancy; Z98.890 Other specified postprocedural states
CPT/HCPCS: 36415; 59025; 76819; 80053; 81001; 81002; 82570; 84156; 84550; 85025; 85379; 85610; 85730; 86850; 86900; 86901; 94760; G0378

== ENCOUNTER 2025-08-22 11:12 | Observation (INO) | payer MEDICAID ==
--- NOTE | 2025-08-25 17:18 | DVH ---
BIOPHYSICAL PROFILE HISTORY: Anti M antibody TECHNIQUE: Multiple transabdominal real-time grayscale sonographic images through the gravid uterus of the fetus with duplex Doppler color flow and M-mode spectral analysis FINDINGS: BIOPHYSICAL PROFILE: breathing score: 2 movement score: 2 tone score: 2 Quantitative ALE score: 2 (ALE: 11.7 Cm.) Total score: 8/8 The cervix obscured by head Single live fetus in cephalic presentation. heart rate 121 beats per minute. Anterior Grade 3 placenta without previa or abruption Single live fetus at 39 weeks 2 days Biophysical profile score 8/8 corresponding to an EDWIGE of 08/30/2025 IMPRESSION: 1. Biophysical profile score: 8/8 2. FHR: 121 bpm
--- NOTE | 2025-08-26 06:19 | DVHDS2 ---
Discharge Summary Date of Admission Aug 25, 2025 at 15:21 Date of Discharge: Aug 25, 2025 Admitting Diagnosis Patient 39+ weeks with anti M antibody followed by perinatology here for NST if BP all reassuring and performed Wounds: None Labs/Diagnostic Data: None Brief Hx & Hospital Course: Patient's NST BPP reassuring and performed Consults/Reason for consult Anti M antibody pre 9+ weeks Operations or Procedures None Condition at Discharge: Good Final Diagnosis/Problems List Anti M antibody 39-2/7 weeks Discharge Disposition: Home Discharge Instruct/Medications Diet: Regular Activity: No Restrictions, As Tolerated Follow Up/Referral: As scheduled routine/peritoneum scheduled visit Scheduled Vit W/ Ferrous Fumara ( One Daily), 1 TAB PO DAILY, (Reported) Discharge Statement: "Patient was advised to return to the ER or call 911 if any headaches, dizziness, shortness of breath, chest pain, abdominal pain, bleeding, fevers, or worsening of medical condition. Patient was counseled about treatment plan, medications, possible side effects, patientverbalized understanding. All questions were answered to the best of my ability. This discharge took greater then 30 minutes in planning, reviewing documentation, counseling the patient, and discussing with other team members." ASSESSMENT ASSESSMENT Assessment Visit Coding OBGYN Date of Service: Aug 26, 2025 Billing Provider: BIENVENIDO OHARA DO FIELD LOGISTICS COORDINATOR Common Visit Codes: 74127-[id number] INP/OBS CARE(HIGH), 13554-QLD/OBS SAME DATE (LOW), 97522-ZJV/OBS SAME DATE (MOD) FIELD LOGISTICS COORDINATOR Procedure Codes: 15616-57- NON-STRESS TEST BIENVENIDO OHARA DO Aug 26, 2025 06:19
--- NOTE | 2025-08-26 07:39 | ECG ---
[facility] Test Date: 2025-08-25 Test Time: 16:22:34 Pat Name: JAVIER FAULKNER Department: Room: [facility] A Gender: F Ash Handler: Venkat MORAES : 1990 Requested By: BIENVENIDO OHARA Order Number: [id number] Reading MD: Measurements Intervals Loraine Rate: 86 P: 12 LA: 120 QRS: 27 QRSD: 80 T: 22 QT: 344 QTc: 411 Interpretive Statements Normal sinus rhythm Please click the below link to view image of tracing.
== END 2025-08-25 17:34 | disposition home or self-care (01) ==
LOC: LDRP 08-25 15:21 → UNDOADMOB 08-25 15:21 → LDRP 08-25 15:30 → UNDODISOB 08-25 17:34
PROVIDERS: ADMIT Obstetrics & Gynecology; ATTEND Obstetrics & Gynecology
DX: O36.1930 Maternal care for other isoimmunization, third trimester, not applicable or unspecified (principal); Z3A.39 39 weeks gestation of pregnancy; Z98.890 Other specified postprocedural states; Z79.899 Other long term (current) drug therapy
CPT/HCPCS: 59025; 76819; 81002; 93005; 94760; G0378

== ENCOUNTER 2025-08-27 04:56 | Observation (INO) | payer MEDICAID ==
--- NOTE | 2025-08-28 13:13 | DVH ---
OB ULTRASOUND, LIMITED CLINICAL INDICATION: Anti- M antibody TECHNIQUE: Multiple grayscale ultrasound and M-mode images were obtained of the pelvis for evaluation of intrauterine . COMPARISON: US BIOPHYSICAL PROFILE on DOS: 08/25/25 FINDINGS: A single living fetus is seen in cephalic presentation. Biophysical profile: 06/13 breathin movement: 2 tone: 2 Amniotic fluid volume: 2 Placenta: Anterior. Amniotic fluid: Visibly normal. ALE 10.3 cm heart rate: 127 beats/min. A complete anatomic survey was not performed on this exam. IMPRESSION: 1. Biophysical profile: 06/13
--- NOTE | 2025-08-29 08:25 | DVHDS2 ---
Physician Discharge Progress N Final Diagnosis: Poss. PI 39wks Operations or Procedures: Operations or Procedures nst reactive reviwed,sono Condition on Discharge: Good Disposition: Home Discharge Instructions: Diet: Regular Activity: No Restrictions, As Tolerated Follow Up/Referral: NST/BPP Q2days Medications: na Follow Up Care: Primary Care Provider: refuses induction fu 1 day Discharge Statement: "Patient was advised to return to the ER or call 911 if any headaches, dizzin ess, shortness of breath, chest pain, abdominal pain, bleeding, fevers, or worsening of medical condition. Patient was counseled about treatment plan, medications, possible side effects, patientverbalized understanding. All questions were answered to the best of my ability. This discharge took greater then 30 minutes in planning, reviewing documentation, counseling the patient, and discussing with other team members." Visit Coding OBGYN Date of Service: Aug 28, 2025 Billing Provider: BLANKA MORALES DO WET CLEANER MACHINE Common Visit Codes: 17668-[id number] INP/OBS CARE (HIGH) WET CLEANER MACHINE Procedure Codes: 89643-86- NON-STRESS TEST BLANKA MORALES DO Aug 29, 2025 08:25
== END 2025-08-28 13:54 | disposition home or self-care (01) ==
LOC: LDRP 08-28 12:07
PROVIDERS: ADMIT Obstetrics & Gynecology; ATTEND Obstetrics & Gynecology
DX: O13.3 Gestational [pregnancy-induced] hypertension without significant proteinuria, third trimester (principal); Z3A.39 39 weeks gestation of pregnancy; Z98.890 Other specified postprocedural states
CPT/HCPCS: 59025; 76819; 81002; G0378

== ENCOUNTER 2025-08-28 19:36 | Inpatient (IN) | payer MEDICAID ==
[~2025-08-28] VITALS: Ht 165.1 cm; Wt 77.1 kg
[2025-08-28] MEDS: NALOXONE HCL 0.4 MG/ML VIAL IV ONE (20:00)
[2025-08-28] MEDS: LACTATED RINGER'S 500 ML IV ONE (20:00)
[2025-08-28] MEDS ORDERED: NALBUPHINE HCL 10 MG/1ml INJECTION IV PRN (20:00)
[2025-08-28 20:19] LABS: Hematocrit 34.7 % (36.0-46.0); Hemoglobin 11.4 g/dL (12.2-16.2); Mean Corpuscular Hemoglobin 27.1 pg (28.0-32.0); Mean Corpuscular Volume 82.1 fL (80.0-100.0); Nucleated Red Blood Cells % 0.1 %
[2025-08-28] MEDS: DERMOPLAST 60ML BOTTLE TOP PRN (20:32)
[2025-08-28] MEDS: PHISODERM TOP SOLN 240ML BTL TOP PRN (20:32)
[2025-08-28 20:33] LABS: Alanine Aminotransferase 18 U/L (7-40); Albumin 3.9 g/dL (3.2-4.8); Anion Gap 12 (5-15); BUN/Creatinine Ratio 8.4 (10.0-20.0); Bilirubin, Total 0.5 mg/dL (0.2-1.0); Calcium 8.9 mg/dL (8.7-10.4); Chloride 105 mmol/L (98-107); Glucose 105 mg/dL (74-106); Sodium 137 mmol/L (136-145); Total Protein 7.3 g/dL (5.7-8.2)
[2025-08-28] MEDS: WITCH HAZEL-GLYCERIN PAD TOP PRN (20:33)
[2025-08-28] MEDS: LACTATED RINGER'S 1,000 ML IV SCH (20:33)
[2025-08-28 20:35] LABS: INR 0.89 (0.9-1.15); Partial Thromboplastin Time 28.4 SEC (24.5-34.5); Prothrombin Time 9.5 sec (9.3-11.8)
[2025-08-28] MEDS: PENICILLIN G POT 5MIL/D5 50ML 50 ML IV ONE (20:35)
--- NOTE | 2025-08-28 20:35 | DVHHP2 ---
OB CC & HPI Date Date of Admission: Aug 28, 2025 Patient Identification: : 4 Para: 3 EDC: Aug 30, 2025 EGA: 39w5d Chief Complaints: Reason for admission: active labor History of Present Complaints Cyndie Thompson is a with IUP at 39w5d presenting for rule out labor Patient states her contractions got stronger and closer together at 6pm. Denies leaking fluid, denies vaginal bleeding, and endorses positive movement. Denies headache, blurry vision, or RUQ pain. PNC: Routine care with Dr Kendrick, adequate visits, complicated by PIH. GTT WNL, d ating based on LMP and early US, GBS taken and unknown OB Hx: x3 Past Medical History Cardiac: No pertinent Hx Pulmonary: No pertinent Hx Central Nervous System: No pertinent Hx GI: No pertinent Hx Hemotology/Oncology: No pertinent Hx Hepatobiliary: No pertinent Hx Psychiatric: No pertinent Hx Musculoskeletal: No pertinent Hx Rheumotologic: No pertinent Hx Infectious Disease: No peritnent Hx ENT: No pertinent Hx Renal/: No pertinent Hx Endocrine: No pertinent Hx Dermatology: No pertinent Hx Past Surgical History: No pertinent Hx OB History OB History Care: Good Care Ultrasounds: Normal mid trimester US Obstetrical Complications: Gestational Hypertension Medical Complications: None Allergies: Coded Allergies: No Known Drug Allergy (Verified Allergy, Unknown, 12/26/24) Home Meds Reported Medications Vit W/ Ferrous Fumara ( One Daily) Daily Tab, 1 TAB PO DAILY, #90 TAB 3 Refills 06/22/25 Current Medications Current Medications Medications (Trade) Dose Ordered Sig/Joey Route PRN Reason Start Time Stop Time Status Last Admin Lactated Ringer's 1,000 ml @ 125 mls/hr Q8H IV 08/28/25 20:00 Nalbuphine HCl (Nubain) 10 mg Q4HP PRN IV MODERATE PAIN (4-6 PAIN SCALE) 08/28/25 20:00 Penicillin G Potassium 2716825 units/Dextrose 50 ml @ 100 mls/hr Q4H IV 08/29/25 00:00 Mahogany Bonilla (Tucks) 1 pad PRN PRN TOP PERINEAL AREA DISCOMFORT 08/28/25 20:00 Sodium Lauryl Sulfate (Phisoderm) 240 ml PRN PRN TOP PERINEAL AREA DISCOMFORT 08/28/25 20:00 Benzocaine (Dermoplast) 1 applic PRN PRN TOP PERINEAL AREA DISCOMFORT 08/28/25 20:00 Lidocaine HCl (Xylocaine) 40 ml ONCE PRN IJ PERINEAL AREA DISCOMFORT 08/28/25 20:00 Family & Social History Family/Social History Past Family/Social History: Fm Hx: denies relevant history Social Hx: -Denies tobacco, alcohol, or other drug use -Denies hx of abuse, feels safe at home -Denies hx of STIs Blood Type: O+ Rubella: immune RPR/VDRL: Negative GBS Status: Unknown HBsAG: Negative Review of Systems Constitutional: No symptom reported Ears, Nose, & Throat: No symptom reported Eyes: No symptom reported Pulmonary/Respiratory: No symptom reported Cardiovascular: No symptom reported Gastrointestinal: No symptom reported Genitourinary: No symptom reported Musculoskeletal: No symptom reported Skin: No symptom reported Psychiatric: No symptom reported Endocrine: No symptom reported Hemotologic/Lymphatic: No symptom reported OB Admission Exam Physical Exam Vitals: VSS HEENT: Nasal Mucosa Normal, Eyes non-injected, Oropharynx Normal, PERRLA, Moist Membranes Heart: Rhythm Normal Lungs: Clear Abdomen: Gravid (EFW 3280 g by Definicare) Extremities: Normal Reflexes: Normal Cervical Dilatation: 7cm Membranes: Intact Heart Rate: 150's Accelerations: Accelerations Present Decelerations: No Decelerations Short Term Variability: Present Auditing Specialist Variability: Average (6-25) Contractions on Admission: < 5 Minutes Apart Date/Time Contractions Began: 08/28/25 @ 1800 Intensity: Moderate OB Plan Plan Admitting Diagnosis: Onset of Labor Plan: Expectant Management Other Plan: ASSESSMENT: -35 yo , IUP at 39w5d -Active labor -Category 1 Tracing -GBS negative PLAN: -Plan of care and plan discussed with Patient -Process, Risks, benefits, of available management options discussed, including starting with expectant management, augmentation if indicated, Internal monitoring of UCs & FHT, AROM, amnioinfusion etc only when indicated -Patient agrees to starting with expectant management at this time, as she desires as natural a as possible; other interventions as indicated. Informed Consent obtained -Consent for possible blood transfusion obtained. -All questions and concerns answered. -Admit to Place for Labor -Routine L&D Admission orders -EFM per policy. OK to be intermittent per protocol, if FHR tracing is reactive and category 1 -Encourage ambulation and/exercises / frequent position change to facilitate labor & descent -Supportive care as needed. Patient requesting an epidural CONY. Patient OK to receive epidural -Re-assess cervix in 3-4 hours, or sooner as indicated to evaluate need for augmentation -Anticipate normal spontaneous vaginal delivery Visit Coding OBGYN Date of Service: Aug 28, 2025 Billing Provider: DOM BARNES CNM TRAVELING CONSTRUCTION SUPERINTENDENT Common Visit Codes: 04552-MODFVXG OBS CARE (HIGH) TRAVELING CONSTRUCTION SUPERINTENDENT Procedure Codes: 80410-39- NON-STRESS TEST DOM BARNES CNM Aug 28, 2025 20:35
[2025-08-28 20:42] LABS: Alkaline Phosphatase 185 U/L (46-116); Blood Urea Nitrogen 7 mg/dL (9-23); Carbon Dioxide 20 mmol/L (20-31); Potassium 3.3 mmol/L (3.5-5.1)
[2025-08-28] MEDS: ROPIVACAINE HCL 100 ML ONE (21:38)
[2025-08-28 22:29] LABS: Urine Protein, UAD Negative (Negative)
[2025-08-28 22:38] LABS: Protein, Urine 30.3 mg/dL (1-14)
[2025-08-28 22:41] LABS: Benzodiazephine Screen, Urine Neg (NEGATIVE); Cannabinoid Screen, Urine Neg (NEGATIVE)
[2025-08-28 22:42] LABS: Amphetamine Screen, Urine Neg (NEGATIVE); Barbiturate Scree,Urine Neg (NEGATIVE); Cocaine Screen, Urine Neg (NEGATIVE); Opiate Scree,Urine Neg (NEGATIVE); Phencyclidine Screen, Urine Neg (NEGATIVE)
[2025-08-29] MEDS ORDERED: PENICILLIN G POTASSIUM 2,500,000 UNITS in D5W 5% 50 ML IV SCH
[2025-08-29] MEDS: LACT. RINGERS/OXYTOCIN 20UNITS 500 ML IV ONE ×2 (00:47→01:23)
--- NOTE | 2025-08-29 06:19 | LDN2 ---
Labor and Delivery Note Date 08/29/25 Age 35 4 Para 3->4 EDC 08/30/25 EGA 39w6d Vaginal Delivery: VTX Vacuum Assisted: No Placenta: Spontaneous Sex: Female Weight 3080g Apgars 9/9 Nuchal Cord Transected: No Amniotic Fluid: Clear Anesthesia epidural Episiotomy: No Extension: No Labs Laboratory Tests 12/20/16 10:35: Hepatitis B Surface Antigen Negative 09/20/16 09:56: Blood Bank 08/28/25 20:00: Blood Type O POSITIVE Comments/Significant Med Anh At 0039 this 35yo now delivered a viable Female infant by w/ APGARS 07/15. ISI. Infant immediately placed skin to skin on pts chest. Cord clamped and cut by FOB after pulsation ceased. Cord blood sent. Intact 3- vessel cord and intact placenta (Ralph), delivered spontaneously Pitocin IV bolus started. Placenta sent to pathology. Patient had epidural and pain was well managed Cervix inspected and intact. Perineum intact. Rectal mucosa and sphincter intact. Fundus at U, firm, midline, and light lochia. QBL 50ml. VSS. Count correct x2. Patient to care and baby to couplet care, both stable. Visit Coding OBGYN Date of Service: Aug 29, 2025 Billing Provider: DOM BARNES CNM SOFTWARE QUALITY ASSURANCE ENGINEER Common Visit Codes: 47670-[id number] INP/OBS CARE(HIGH) SOFTWARE QUALITY ASSURANCE ENGINEER Procedure Codes: 91641-COL DELIVERY ONLY DOM BARNES CNM Aug 29, 2025 06:18
[2025-08-29] MEDS: LIDOCAINE 2%HCL (LOCAL ANESTH.) INJ 20ML MDV IJ PRN (06:38)
[2025-08-29] MEDS ORDERED: ACETAMINOPHEN 325 MG TAB PO PRN (06:45)
[2025-08-29 07:30] VITALS: BP 95/54; PULSE 81; RESP 16; TEMP 98.2; O2SAT 97
[2025-08-29] MEDS: POTASSIUM CHL 20 Meq TABLET PO ONE (07:58)
[2025-08-29 11:30] VITALS: BP 108/71; PULSE 60; RESP 16; TEMP 97.9; O2SAT 99
[2025-08-29] MEDS: IBUPROFEN 600 MG TAB PO PRN (12:29)
[2025-08-29 15:14] VITALS: BP 96/46; PULSE 83; RESP 16; TEMP 98.5; O2SAT 97
[2025-08-29 19:00] VITALS: BP 102/56; PULSE 79; RESP 15; TEMP 98.1; O2SAT 98
[2025-08-29] MEDS ORDERED: DOCUSATE SOD 100 MG CAP PO SCH (22:00)
[2025-08-29 23:00] VITALS: BP 99/58; PULSE 80; RESP 17; TEMP 98.2; O2SAT 98
--- NOTE | 2025-08-30 02:14 | DVHPN2 ---
Progress Note Date Seen: Aug 30, 2025 Subjective Cyndie is resting in bed. Baby swaddled and crying in FOB arms. SUBJECTIVE -Lochia minimal -Tolerating regular diet well. -Pain relieved with oral medication PRN -Ambulating and voiding well w/o feeling lightheaded or dizzy. -Passing flatus and had BM x1 -Breast feeding -Desires and requests to be discharged home today (08/30) vital signs Vital Sign Date Time Temp Pulse Resp B/P (MAP) Pulse Ox O2 Delivery O2 Flow Rate FiO2 08/29/25 23:00 98.2 80 17 99/58 (72) 98 98.2 08/29/25 19:00 Room Air Total Intake and Output 08/29/25 08/29/25 08/30/25 15:00 23:00 07:00 Output Total 1300 ml Balance -1300 ml medications Current Medications Medications Dose Ordered Sig/Joey Route Start Time Stop Time Status Last Admin Dose Admin Nalbuphine HCl 10 mg Q4HP PRN IV 08/28/25 20:00 Cancel Penicillin G Potassium 1940421 units/Dextrose 50 ml @ 100 mls/hr Q4H IV 08/29/25 00:00 Cancel Witch Irene 1 pad PRN PRN TOP 08/28/25 20:00 08/28/25 20:33 1 PAD Sodium Lauryl Sulfate 240 ml PRN PRN TOP 08/28/25 20:00 08/28/25 20:32 240 ML Benzocaine 1 applic PRN PRN TOP 08/28/25 20:00 08/28/25 20:32 1 APPLIC Ibuprofen 600 mg Q6HP PRN PO 08/29/25 06:45 08/29/25 12:29 600 MG Acetaminophen 650 mg Q4HP PRN PO 08/29/25 06:45 Docusate Sodium 200 mg HS PO 08/29/25 22:00 laboratory and microbiology Laboratory Tests 08/28/25 20:00 Test 08/28/25 20:00 Range/Units Serum Glucose 105 74-106 mg/dL Objective OBJECTIVE -A&O x4. No apparent distress. Affect appropriate -Afebrile, VSS -Chest: heart and lung sounds normal. -Breasts: Nipples intact w/o cracks or soreness -Abdomen: normal BS, soft, non-tender, no rebound or guarding, fundus firm @ U- 1, lochia minimal -Perineum: no edema, or erythema -Extremities: no edema or tenderness Problems(with codes): (1) (normal spontaneous vaginal delivery) Assessment/Plan ASSESSMENT -35 yo now ppd #1 s/p doing well. -Blood Type: O+ -Breast feeding -Rubella Immune PLAN -Continue pain management with oral medications as previously ordered. Rx placed and pt aware -Maintain adequate fluid intake and fiber in diet to promote regular bowel movements, Laxative PRN -Encouraged patient to continue taking vitamin and iron -Educated patient on self care and warning signs of PPH, PPD, and pre-eclampsia. Answered all pt questions and concerns -Continue routine care and anticipate discharge today Plan discussed with: Patient, Spouse Visit Coding OBGYN Date of Service: Aug 30, 2025 Billing Provider: DOM BARNES CNM GROCERY STORE BAGGER Common Visit Codes: 23070-[id number] INP/OBS CARE(MOD) DOM BARNES CNM Aug 30, 2025 02:14
--- NOTE | 2025-08-30 02:15 | DVHDS2 ---
Obstetrics Discharge Summary Obstetrics Discharge Summary Date of Admission: Aug 28, 2025 Date of Discharge: Aug 30, 2025 Reason For Admission: Onset of Labor Intrapartum Procedures: Spontaneous vaginal deliv Discharge Diagnosis: Term -Delivered Discharge Information: Activity (Unrestricted. Advance as tolerated. Balance activities with rest periods. No heavy lifting, pushing or straining. Pelvic rest x 6 weeks), Diet (Routine regular diet rich in fiber, protein, iron and vitamin C with adequate fluid intake.), Medications (Ibuprofen 600mg every 6 hours as needed for pain. Colace 100mg twice a day as needed to keep bowel movements soft and prevent constipation. Continue Vitamin and iron), Instructions (Routine), Discharge to (Home), Accompanied by (partner), Discarge date (08/30/25) Discharge Care Plan Instructions - self care instructions given - emergency signs and symptoms including but not limited to pre-eclampsia precautions and signs of infection, PPH & of PPD reviewed with patient. -Follow up with OB Provider in 2 weeks and again at 6 weeks Visit Coding OBGYN Date of Service: Aug 30, 2025 Billing Provider: DOM BARNES CNM BRAIDER OPERATOR Common Visit Codes: 61118-JPP/OBS DISCH DAY <30MIN DOM BARNES CNM Aug 30, 2025 02:15
[2025-08-30] MEDS ORDERED: DOCU-94 PO (02:16)
[2025-08-30] MEDS ORDERED: PREN-96 PO (02:16)
[2025-08-30] MEDS ORDERED: IBU600T PO (02:16)
[2025-08-30 03:00] VITALS: BP 99/53; PULSE 72; RESP 16; TEMP 98.1; O2SAT 98
[2025-08-30 07:15] VITALS: BP 106/59; PULSE 68; RESP 16; TEMP 98.1; O2SAT 99
== END 2025-08-30 13:50 | disposition home or self-care (01) | DRG 560 ==
LOC: LDRP 19:36
PROVIDERS: ADMIT Obstetrics & Gynecology; ATTEND Obstetrics & Gynecology
PROC: 10E0XZZ Delivery of Products of Conception, External Approach (ICD-10-PCS; principal; 2025-08-29)
PROC: 3E0R3BZ Introduction of Anesthetic Agent into Spinal Canal, Percutaneous Approach (ICD-10-PCS; 2025-08-29)
PROC: 00HU33Z Insertion of Infusion Device into Spinal Canal, Percutaneous Approach (ICD-10-PCS; 2025-08-29)
DX: O13.4 Gestational [pregnancy-induced] hypertension without significant proteinuria, complicating childbirth (principal); Z37.0 Single live birth; Z3A.39 39 weeks gestation of pregnancy
CPT/HCPCS: 36415; 59025; 59409; 62282; 80053; 80307; 81001; 82570; 84156; 84550; 85025; 85610; 85730; 86780; 86803; 86850; 86900; 86901; 94760; 96360; 96361; 96365; 96366; G0378; J2540; J2590; J7060